=== PATIENT | female | born 1955 | race Caucasian/White ===

== ENCOUNTER 2020-06-20 09:03 | Outpatient (CLI) | payer OTHER | END 2020-06-20 09:14 | disposition home or self-care (01) | LOC: RX STUDY 09:03 | PROVIDERS: ATTEND Surgery | DX: K44.9 Diaphragmatic hernia without obstruction or gangrene (principal) ==

== ENCOUNTER 2020-07-17 08:00 | Inpatient (IN) | payer OTHER ==
[~2020-07-17] VITALS: Ht 152.4 cm; Wt 65.8 kg
[2020-07-17] MEDS ORDERED: NORVASC5 MG PO (10:53)
[2020-07-24] MEDS ORDERED: PANTOPRAZOLE SO40 MG (07:57)
[2020-07-25] MEDS ORDERED: GAS RELIEF 8080 MG PO (17:41)
[2020-07-25] MEDS ORDERED: PROTONIX40 MG PO (17:42)
[2020-07-25] MEDS ORDERED: CARAFATE1 GM PO (17:42)
[2020-07-25] MEDS ORDERED: POLY119PG PO (17:43)
[2020-07-25] MEDS ORDERED: TYLENOL ARTHRI650 MG PO (17:43)
[2020-07-25] MEDS ORDERED: NEURONTIN600 M1 PO (17:43)
== END 2020-07-27 16:57 | disposition home or self-care (01) | DRG 328 ==
LOC: O/R 07-24 05:40 → SURG 07-24 05:40 → SURH 07-24 08:00 → SURG 07-24 14:09
PROVIDERS: ADMIT Surgery; ATTEND Surgery
PROC: 0DS64ZZ Reposition Stomach, Percutaneous Endoscopic Approach (ICD-10-PCS; 2020-07-24)
PROC: 0WUF4JZ Supplement Abdominal Wall with Synthetic Substitute, Percutaneous Endoscopic Approach (ICD-10-PCS; 2020-07-24)
PROC: 0DV44ZZ Restriction of Esophagogastric Junction, Percutaneous Endoscopic Approach (ICD-10-PCS; 2020-07-24)
PROC: 0BUT4JZ Supplement Diaphragm with Synthetic Substitute, Percutaneous Endoscopic Approach (ICD-10-PCS; principal; 2020-07-24 08:30)
DX: K44.9 Diaphragmatic hernia without obstruction or gangrene (principal); K31.89 Other diseases of stomach and duodenum; K42.9 Umbilical hernia without obstruction or gangrene; K43.2 Incisional hernia without obstruction or gangrene; Z20.828 Contact with and (suspected) exposure to other viral communicable diseases